=== PATIENT | female | born 1960 | race Caucasian/White ===

== ENCOUNTER 2018-05-07 08:38 | Emergency (ER) | payer OTHER ==
[2018-05-07 08:55] VITALS: BP 135/84
[2018-05-07] MEDS ORDERED: Tetracaine 0.5% OPTH.SOL 4 ML* 1 DROP BTL ONE (09:06)
[2018-05-07] MEDS ORDERED: Fluorescein Sod TOPICAL 0.6* 0.6 MG TEST OPHTHALMIC ONE ×2 (09:06→09:20)
[2018-05-07] MEDS ORDERED: BSS OPTH.SOL* BTL ONE (09:06)
--- NOTE | 2018-05-07 09:26 | UC ---
Eye Complaint HPI - HPI Summary HPI Summary: Patient got saw dust in her eye 2 days ago, did wash it out. now has constant irriation and a film over the eye. - History of Current Complaint Chief Complaint: UCEye Stated Complaint: RIGHT EYE (SAWDUST) Time Seen by Provider: 05/07/18 09:20 Hx Obtained From: Patient ?: No Onset/Duration: Sudden Onset, Lasting Days Timing: Constant Severity Initially: Mild Severity Currently: Mild Pain Intensity: 0 Location of Injury: Conjunctiva Character: Foreign Body Sensation Aggravating Factor(s): Ultraviolet Exposure Alleviating Factor(s): Darkness - Allergies/Home Medications Allergies/Adverse Reactions: Allergies Allergy/AdvReac Type Severity Reaction Status Date / Time lisinopril Allergy Difficulty Verified 05/07/18 08:53 Breathing meperidine [From Demerol] Allergy Vomiting Verified 05/07/18 08:53 Home Medications: Home Medications Omeprazole CAP* [Prilosec CAP* 20 MG] 20 mg PO DAILY 05/07/18 [History Confirmed 05/07/18] amLODIPine TAB* [Norvasc 5 mg TAB*] 5 mg PO DAILY 05/07/18 [History Confirmed ] metFORMIN* [Glucophage 500 MG TAB *] 500 mg PO DAILY 05/07/18 [History Confirmed 05/07/18] PMH/Surg Hx/FS Hx/Imm Hx Previously Healthy: Yes - Surgical History Surgical History: Yes Surgery Procedure, Year, and Place: CHOLEYCYSTECTOMY - Social History Alcohol Use: Occasionally Substance Use Type: None Smoking Status (MU): Never Smoked Tobacco Review of Systems Constitutional: Negative Skin: Negative Eyes: Eye Redness ENT: Negative Respiratory: Negative Cardiovascular: Negative Gastrointestinal: Negative Genitourinary: Negative Motor: Negative Neurovascular: Negative Musculoskeletal: Negative Neurological: Negative Psychological: Negative Is Patient Immunocompromised?: No All Other Systems Reviewed And Are Negative: Yes Physical Exam Triage Information Reviewed: Yes Vital Signs: Initial Vital Signs Temp 98.1 F 05/07/18 08:48 Pulse 91 05/07/18 08:48 Resp 17 05/07/18 08:48 BP 135/84 05/07/18 08:48 Pulse Ox 99 05/07/18 08:48 Eyes: Positive: Conjunctiva Inflamed, Discharge ENT Exam: Normal Dental Exam: Normal Neck exam: Normal Respiratory Exam: Normal Respiratory: Positive: Chest non-tender, Lungs clear, Normal breath sounds Cardiovascular Exam: Normal Cardiovascular: Positive: RRR, No Murmur, Pulses Normal Abdominal Exam: Normal Abdomen Description: Positive: Nontender, No Organomegaly, Soft Bowel Sounds: Positive: Present Musculoskeletal Exam: Normal Neurological Exam: Normal Psychological Exam: Normal Skin Exam: Normal Eye Complaint Course/Dx - Course Course Of Treatment: hx obtained, exam performed ,meds reviewed, ful justin used treated for corneal abrasion - Differential Dx/Diagnosis Differential Diagnosis/HQI/PQRI: Conjunctivitis, Corneal Abrasion Provider Diagnoses: right eye corneal abraision. right eye conjunctivitis Discharge - Sign-Out/Discharge Documenting (check all that apply): Discharge/Admit/Transfer - Discharge Plan Condition: Stable Disposition: HOME Patient Education Materials: Corneal Abrasion (ED) Referrals: Gabi Browne MD [Primary Care Provider] - Additional Instructions: 1. Use the medication as prescribed. 2. Wear protective eye gear in the sun. 3. FOllow up if not improving - Billing Disposition and Condition Condition: STABLE Disposition: Home
== END 2018-05-07 09:35 | disposition home or self-care (01) ==
LOC: UCCORT 08:38
DX: S05.01XA Injury of conjunctiva and corneal abrasion without foreign body, right eye, initial encounter (principal); S00.251A Superficial foreign body of right eyelid and periocular area, initial encounter; X58.XXXA Exposure to other specified factors, initial encounter; Y93.9 Activity, unspecified; Y92.9 Unspecified place or not applicable; H10.9 Unspecified conjunctivitis; Z88.5 Allergy status to narcotic agent; Z88.8 Allergy status to other drugs, medicaments and biological substances
CPT/HCPCS: 99212; A9270-GY; G0463